=== PATIENT | male | born 1990 | race Native Hawaiian/Other Pacific Islander ===

== ENCOUNTER 2019-01-06 09:48 | Inpatient (IN) | payer MEDICARE, OTHER ==
[2019-01-06 10:04] VITALS: O2SAT 98
--- NOTE | 2019-01-06 10:15 | ED PDOC ---
Arrival/HPI - General Chief Complaint: Psychiatric Evaluation Time Seen by Provider: 01/06/19 09:56 Historian: Patient - History of Present Illness Narrative History of Present Illness (Text): 01/06/19 10:22 28-year-old male with a history of schizophrenia transferred from [facility] in [place]. Patient states he has been hearing voices and has been feeling depressed with intermittent suicidal ideation. He denies chest pain or shortness of breath. He denies abdominal pain. Past Medical History - Provider Review Nursing Documentation Reviewed: Yes - Travel History Have you recently traveled outside [place] w/in the past 3 mons?: No - Psychiatric Hx Schizophrenia: Yes Hx Substance Use: No Family/Social History - Physician Review Nursing Documentation Reviewed: Yes Family/Social History: Unknown Family HX Smoking Status: Heavy Smoker > 10 Cigarettes Daily Hx Alcohol Use: No Hx Substance Use: No Allergies/Home Meds Allergies/Adverse Reactions: Allergies No Known Allergies Allergy (Verified 01/06/19 09:56) Home Medications: Home Meds Medication Instructions Recorded Confirmed Benztropine [Cogentin] 1 mg PO Q12 01/06/19 01/06/19 Risperidone [Risperdal] 4 mg PO BID 01/06/19 01/06/19 Review of Systems - Review of Systems Constitutional: absent: Fatigue, Fevers Respiratory: absent: SOB, Cough Cardiovascular: absent: Chest Pain, Palpitations Gastrointestinal: absent: Abdominal Pain, Nausea, Vomiting Genitourinary Male: absent: Dysuria, Frequency, Hematuria Musculoskeletal: absent: Arthralgias Skin: absent: Rash, Pruritis Neurological: absent: Headache, Dizziness Psychiatric: absent: Anxiety, Depression, Suicidal Ideation Physical Exam Vital Signs Reviewed: Yes Vital Signs Temp Pulse Resp BP Pulse Ox 01/06/19 09:48 97.8 F 68 16 96/52 L 98 Temperature: Afebrile Blood Pressure: Normal Pulse: Regular Respiratory Rate: Normal Appearance: Positive for: Well-Appearing, Non-Toxic, Comfortable Pain Distress: None Mental Status: Positive for: Alert and Oriented X 3 - Systems Exam Head: Present: Atraumatic Mouth: Present: Moist Mucous Membranes Respiratory/Chest: Present: Clear to Auscultation Cardiovascular: Present: Regular Rate and Rhythm Abdomen: No: Tenderness Upper Extremity: Present: Normal Inspection Lower Extremity: Present: Normal Inspection Neurological: Present: GCS=15, Speech Normal Skin: Present: Warm, Dry, Normal Color Psychiatric: Present: Alert, Oriented x 3 Medical Decision Making ED Course and Treatment: 01/06/19 10:23 28-year-old male with schizophrenia. Transfer from [facility]. Patient was medically cleared for psychiatric admission. Impression: Schizophrenia, depression Admit to behavioral health floor Disposition/Present on Arrival - Present on Arrival Any Indicators Present on Arrival: No History of DVT/PE: No History of Uncontrolled Diabetes: No Urinary Catheter: No History of Decub. Ulcer: No History Surgical Site Infection Following: None - Disposition Have Diagnosis and Disposition been Completed?: Yes Diagnosis: Schizophrenia, Depression Disposition: HOSPITALIZED Disposition Time: 10:10 Patient Plan: Admission Patient Problems: Current Active Problems Problem Status Onset Schizophrenia Acute Condition: FAIR Referrals: PCP,NO [Primary Care Provider] - Follow up with primary
[2019-01-06] MEDS ORDERED: OLANZapine 5 mg Disintegrating Tab PO STA (11:30)
[2019-01-06] MEDS ORDERED: Haloperidol Lactate 2 mg/ml Liquid PO PRN ×2 (11:39→11:58)
--- NOTE | 2019-01-06 11:46 | PCM.BM ---
<Gorge Amado - Last Filed: 01/06/19 11:42> Treatment Plan Problems - Problems identified on initial assessmt Altered thought process Date Initiated: 01/06/19 Time Initiated: 11:30 Assessment reference: NA Status: Active Priority: 1 Comment: Auditory hallucination,male voice,to kill hurt self. Ineffective coping Date Initiated: 01/06/19 Time Initiated: 11:30 Assessment reference: NA Status: Active Priority: 2 Comment: Inability to cope with symptoms of mental illness Treatment assets and liabiliti Patient Assests: cooperative, educated, insightful, motivated, ADL independent, physically healthy Patient Liabilities: live alone, poor support system - Milieu Protocol Maintain good personal hygiene: every other day Encourage regular showers, every other day Remind patient to perform daily oral care, every other day Assist patient to perform ADL's Conduct patient checks and document Observation sheet: Q15 minutes Maintain personal safety: every shift Educate patient to report safety concerns to staff, every shift Monitor environment for contraband/sharps Medication safety: Monitor for expected outcome, potential side effects: every shift, Assess barriers to learning: every shift, Assess readiness for medication education: every shift Family Contact Family involvement: Famliy/SO not involved Family contact: Patient declines to allow family contact at present Discharge/Continuing Care - Education Needs Education Needs: Patient Medication, Patient Diagnosis/Disease Process, Patient Coping Skills, Patient Placement options, Patient Community resources, Patient Activities of Daily Living, Patient Nutrition, Patient Health Practices/Safety, Patient Personal Hygiene/Grooming, Patient Aftercare Safety Plan - Discharge Discharge Criteria: Tolerates medication w/o severe side effects, Free of Suicidal thoughts, Normal sleep pattern, Reduction of target symptoms <Farhana Wright - Last Filed: 01/06/19 13:49> - Diagnosis (1) Schizophrenia Status: Acute Interventions: 01/06/19 13:50 Monitoring withdrawal symptoms Medical detoxification Pharmacotherapy for alcohol/benzos/opioid dependence Maintaining sobriety Relapse prevention Possible rehabilitation Motivational interviewing 12-step programs: AA meetings <Margie Delgado - Last Filed: 01/10/19 12:15>
[2019-01-06] MEDS ORDERED: DiphenhydrAMINE 50 mg/ml Inj IM PRN (11:47)
--- NOTE | 2019-01-06 13:49 | PCM.PSYCH ---
Initial Psychiatric Evaluation - Initial Psychiatric Evaluation Type of Admission: Voluntary Legal Status: Capacity Chief Complaint (in patient's own words): "I hear voices, I do not know what they are saying, I am here because of bad thoughts" Patient's Reaction to Hospitalization: Patient was transferred from [facility] for evaluation stabilization of psychotic symptoms, inability to function, possible suicidal ideations. History of Present Illness and Precipitating Events: Shortly patient is 28-year-old [place] male, with reported history of schizophrenia, multiple previous psychiatric admissions, as per report patient left [facility] about a week ago, patient is homeless, has no support, patient came to the [facility], looking for help for psychotic symptoms and possible suicidal ideation, pt signed voluntarily to this psychiatric unit, transfer from [facility] was uneventful. Patient was seen and examined today the treatment team meeting, transferred paper reviewed, discussed with treatment team, patient presented with acceptable personal hygiene, appears to be guarded, paranoid, internally preoccupied, fair ADLs. Patient seems to be anxious and restless. Patient's thought process is concrete, "yes/no" answers only, patient seems to be poor and unreliable historian, patient has thought blocking, all these symptoms seems to be chronic and disturbing. Patient denied command type hallucinations, but appears to be responding. Patient reported being adopted, patient does not know where she is adoptive parents are, patient reported that she was born in [place], she does not know she is biological parents, patient reported being homeless. Patient reported that she is on Risperdal 3 mg twice a day, and Cogentin 1 mg twice a day, reported being compliant with her medications, denied any side effects. From this specifications writer perspective if patient was compliant with her medications and still admitted to the psychiatric inpatient unit, it means meds poorly working. Patient agreed to take Zyprexa+cogentin and ativan. As per report patient came to the hospital looking for help for his auditory hallucinations and suicidal thoughts, as per report patient was recently discharged from [facility] about 3 weeks ago where he was admitted for suicidal ideations and auditory hallucinations. In the emergency room patient reported that initially he was feeling good but voices came back few days ago. In the emergency room patient presented to be internally preoccupied, thought blocking, guarded. Patient was diagnosed with schizophrenia at the age of 24. As per report patient had a grandmother whom she lives with periodically. Patient reported being depressed "a little." Patient reported that he smokes about 1 pack a day, nicotine patch was offered, but patient declined that offer denied using any other drugs. Medications were confirmed by [facility] [place] [id number] Risperdal 3 mg twice a day Cogentin 1 mg twice a day As per history patient denied impulsive or violent or aggressive thoughts or feelings. Past psychiatric history: Multiple admissions to the psychiatric inpatient unit, ago. Family history: Unknown, patient was adopted. Medical history: Patient denies any medical history. Patient is allergic to Zithromax Urine drug screen was negative for any substances Chest x-ray impression: No evidence of acute pulmonary disease EKG: Normal EKG Vital Signs Temp Pulse Resp BP Pulse Ox 01/06/19 11:19 20 01/06/19 09:48 97.8 F 68 16 96/52 L 98 The patient failed the outpatient lower level of care: Yes Current Medications: Active Medications Generic Name Dose Route Start Last Admin Trade Name Freq PRN Reason Stop Dose Admin Benztropine Mesylate 1 mg 01/06/19 22:00 Cogentin PO AMHS PEPPER Diphenhydramine HCl 50 mg 01/06/19 11:47 Benadryl IM Q6H PRN Agitation Diphenhydramine HCl 50 mg 01/06/19 11:47 Benadryl PO Q6H PRN Agitation Haloperidol 5 mg 01/06/19 11:39 Haldol PO Q6H PRN Psychosis Protocol Haloperidol Lactate 5 mg 01/06/19 11:58 Haldol PO Q6H PRN psychosis/agitation Protocol Lorazepam 2 mg 01/06/19 11:41 Ativan PO Q6 PRN Agitation Protocol Lorazepam 2 mg 01/06/19 11:41 Ativan IM Q6H PRN Agitation Olanzapine 5 mg 01/06/19 22:00 Zyprexa Zydis PO HS PEPPER Protocol Olanzapine 5 mg 01/06/19 16:00 Zyprexa Zydis PO BID PEPPER Protocol Present on Admission - Present on Admission Any Indicators Present on Admission: No History of DVT/PE: No History of Uncontrolled Diabetes: No Urinary Catheter: No Decubitus Ulcer Present: No Review of Systems - Review of Systems Systems not reviewed;Unavailable: Acuity of Condition - Constitutional Constitutional: As Per HPI - EENT Eyes: As Per HPI Ears: As Per HPI Nose/Mouth/Throat: As Per HPI - Cardiovascular Cardiovascular: As Per HPI - Respiratory Respiratory: As Per HPI - Gastrointestinal Gastrointestinal: As Per HPI - Genitourinary Genitourinary: As Per HPI - Reproductive: Male Reproductive:Male: As Per HPI - Musculoskeletal Musculoskeletal: As Per HPI - Integumentary Integumentary: As Per HPI - Neurological Neurological: As Per HPI - Psychiatric Psychiatric: As Per HPI - Endocrine Endocrine: As Per HPI - Hematologic/Lymphatic Hematologic: As Per HPI Past Patient History - Past Psychiatric History Previous Treatment History: Inpatient Prior Professional Help: See HPI Prior Psychiatric Treatment: See HPI At what hospital: See HPI Duration: See HPI Nature of Treatment: See HPI Explanation of prior treatment: See HPI - PSYCHIATRIC Hx Psychophysiologic Disorder: Yes Hx Schizophrenia: Yes Hx Substance Use: No - CARDIAC Hx Cardiac Disorders: No - PULMONARY Hx Respiratory Disorders: No - NEUROLOGICAL Hx Neurological Disorder: No - HEENT Hx HEENT Problems: No - RENAL Hx Chronic Kidney Disease: No - ENDOCRINE/METABOLIC Hx Endocrine Disorders: No - HEMATOLOGICAL/ONCOLOGICAL Hx Blood Disorders: No - INTEGUMENTARY Hx Dermatological Problems: No - MUSCULOSKELETAL/RHEUMATOLOGICAL Hx Musculoskeletal Disorders: No - GASTROINTESTINAL Hx Gastrointestinal Disorders: No - GENITOURINARY/GYNECOLOGICAL Hx Genitourinary Disorders: No - SURGICAL HISTORY Hx Surgeries: No - ANESTHESIA Hx Anesthesia: No - Medical/Surgical History Reviewed & confirmed: by pa Meds Allergies/Adverse Reactions: Allergies Allergy/AdvReac Type Severity Reaction Status Date / Time No Known Allergies Allergy Verified 01/06/19 11:11 Mental Status Examination - Personal Presentation Personal Presentation: Looks stated age - Affect Affect: Constricted, Flat - Motor Activity Motor Activity: Calm - Reliability in Providing Information Reliability in Providing Information: Poor, due to alteration in thoughts, Poor, due to cognitve impairment - Speech Speech: Disorganized - Mood Mood: Depressed, Anxious - Formal Thought Process Formal Thought Process: Hallucinations, Delusions, Paranoia - Obsessions/Compulsions Obsessions: None Compulsions: None - Cognitive Functions Orientation: Person, Place, Situation, Time Sensorium: Alert Attention/Concentration: Easily distracted Abstract Thinking: [place] Estimate of Intelligence: Below average Judgement: Intact, as evidence by: Insight regarding need for hospitalization - Risk Risk: Suicidal, Self-mutilation, Diminished functioning - Strength & Assets Inventory Strength & Assets Inventory: Cooperative - Limitations Limitations: Other (Patient is homeless, poor support, chronic mental illness) Psychiatric Physical Exam - Physical Exam Reviewed and confirmed: Emergency Department Physical Exam Results - Vital Signs Recent Vital Signs: Last Vital Signs Temp 97.8 F 01/06/19 09:48 Pulse 68 01/06/19 09:48 Resp 20 01/06/19 11:19 BP 96/52 L 01/06/19 09:48 Pulse Ox 98 01/06/19 09:48 - EKG Data EKG Interpreted by: ER Physician EKG shows normal: Sinus rhythm DSM Plan - DSM 5 DSM 5 Diagnosis: Schizophrenia paranoid type - Recommended/Plan of Treatment Treatment Recommendations and Plan of Treatment: Milieu/structure/supportive therapy SW consultation for discharge plan and social issues Med management Risperdal will be discontinued because of ineffectiveness Zyprexa Zydis 5 mg twice a day and that the nighttime for psychosis Cogentin 1 mg twice a day Patient was medicated with Ativan and Zyprexa because patient presented to be actively responding and restless Remeron 15 mg at the nighttime for insomnia and depression Family involvement Follow up on labs Will monitor closely Pt was educated about risk/benefits and alternatives of medications, coping strategies (safety plan, suicide prevention), relapse prevention, importance of follow up with psychiatrist and therapist, stay away from drugs/alcohol/smoking Projected ELOS: 7 days Prognosis: Guarded Discharge Plan and Discharge Criteria: Patient will pose no imminent danger to self or others - Tobacco Cessation Tobacco Use Status for the last 30 days: Heavy User(>=5 cigs &/or cigars/pipes daily) Tobacco Use Treatment Practical Counseling Provided: Yes Tobacco Use Treatment FDA-Approved Cessation Medication Provided: No Reason for not providing: Patient refused tobacco cessation medication - Alcohol or Substance Abuse Does the patient have an Alcohol or Substance Abuse Disorder: No Initial Psych Certification - Initial Certification I certify that the inpatient psychiatric facility admission was medically necessary for either: Treatment which could reasonbly be expected to improve pt's condition I estimate of hospitalization is necessary for proper treatment of the patient: 7 Unit of Time: Days My plans for post-hospital care for this patient are: Intensive outpatient program Boarding home referral Integrative case management referral
[2019-01-06] MEDS: OLANZapine 5 mg Disintegrating Tab PO SCH ×2 (17:17→21:48)
[2019-01-06] MEDS ORDERED: OLANZapine 5 mg Disintegrating Tab PO SCH (22:00)
[2019-01-07] MEDS: OLANZapine 5 mg Disintegrating Tab PO SCH ×3 (08:46→21:36)
--- NOTE | 2019-01-07 09:19 | PCM.PYCHPN ---
Psychiatric Progress Note - Psychiatric Progress Note Patient seen today, length of contact: 25 min Problems Identified/Issues Discussed: I reviewed assessment and recent notes. I met with patient at bedside. He is conscious and opens his eyes when I call his name however he refuses to respond to my questioning. His affect is flat without any evidence of emotion/reaction to my introduction. Staff notes indicate that patient has been guarded, internally preoccupied and minimally verbal or interactive on the unit. Thought process is concrete and negative symptoms are predominant in his overall presentation as he has +thought blocking, decreased reactivity, speech and behaviors. He will not respond to questioning about his medications however he doesn't appear to be in physical or overt emotional distress. Insight and judgement remain poor. Diagnostic Results: Paranoid Schizophrenia Medication Change: Yes (added ativan 1 mg HS for catatonia) Medical Record Reviewed: Yes Mental Status Examination - Cognitive Function Orientation: Person, Place, Situation, Time - Mood Mood: Depressed, Anxious - Affect Affect: Constricted, Flat - Formal Thought Process Formal Thought Process: Hallucinations, Delusions, Paranoia Goal/Treatment Plan - Goal/Treatment Plan Progress Toward Problem(s) and Goals/Treatment Plan: * c/w current tx and plan * Added Ativan 1 mg po HS for catatonia and as further EPS prophylaxis as Asians are more susceptible to EPS s/e, patient is currently taking zyprexa zydis 5 mg po bid and HS * No new weekend lab results noted thus far * Recent vitals reviewed and noted below: 01/06/19 01/06/19 01/06/19 09:48 11:19 16:04 Temperature 97.8 F Pulse Rate 68 71 Respiratory 16 20 Rate Blood Pressure 96/52 L 103/63 O2 Sat by Pulse 98 Oximetry
--- NOTE | 2019-01-08 08:56 | PCM.PYCHPN ---
Psychiatric Progress Note - Psychiatric Progress Note Patient seen today, length of contact: 25 min Problems Identified/Issues Discussed: I reviewed recent notes and met with patient at bedside again. He is conscious and a little more responsive but still refuses to verbally participate in an i nterview. Affect remains flat and guarded without any evidence of emotion/reaction to my repeated introduction and questioning. Staff notes indicate that patient has been guarded, internally preoccupied and minimally verbal or interactive on the unit. Thought process is concrete and negative symptoms are predominant in his overall presentation as he has +thought blocking, decreased reactivity, speech and behaviors. He will not respond to questioning about his medications however he doesn't appear to be in physical or overt emotional distress. Patient stays in his room most of the time, even when called for medications. He doesn't attend groups or interact with peers. Minimally engaged with any unit related activities. Insight and judgement remain poor. Diagnostic Results: Paranoid Schizophrenia Medication Change: Yes (added ativan 1 mg HS for catatonia) Medical Record Reviewed: Yes Mental Status Examination - Cognitive Function Orientation: Person, Place, Situation, Time Attention: Poor Concentration: Poor Association: Loose Fund of Knowledge: Poor - Mood Mood: Depressed, Anxious - Affect Affect: Constricted, Flat - Formal Thought Process Formal Thought Process: Hallucinations, Delusions, Paranoia - Suicidal Ideation Suicidal Ideation: No - Homicidal Ideation Homicidal Ideation: No Goal/Treatment Plan - Goal/Treatment Plan Progress Toward Problem(s) and Goals/Treatment Plan: * c/w current tx and plan * Added Ativan 1 mg po HS on 01/07/19 for catatonia and as further EPS prophylaxis as Asians are more susceptible to EPS s/e, patient is currently taking zyprexa zydis 5 mg po bid and HS * No new weekend lab results noted thus far * Recent vitals reviewed and noted below: Selected Entries 01/07/19 01/07/19 07:01 16:00 Temperature 97.8 F Pulse Rate 71 80 Respiratory 20 Rate Blood Pressure 110/72 108/73
[2019-01-08] MEDS: OLANZapine 5 mg Disintegrating Tab PO SCH ×3 (09:08→21:12)
--- NOTE | 2019-01-09 09:08 | PCM.PYCHPN ---
Psychiatric Progress Note - Psychiatric Progress Note Patient seen today, length of contact: 25 min Problems Identified/Issues Discussed: I reviewed recent notes and met with patient at bedside again. He is a little more verbally responsive today. Reports that he is feeling "a little down", oth erwise he is "fine". Denies hallucinations or paranoia about anything. He tells staff members the same thing though has been observed talking loudly to himself on the unit. Patient required prns twice on Wednesday because he was actively and loudly responding to internal stimuli. Patient's affect remains flat and guarded without any evidence of emotion/reaction to my repeated introduction and questioning. Staff notes indicate that patient has been guarded, internally preoccupied and minimally verbal or interactive on the unit. Thought process is concrete and patient continues to demonstrate +thought blocking, decreased reactivity, speech and behaviors during interactions with this provider or staff. Patient still will not respond to questioning about his medications however he doesn't appear to be in physical or overt emotional distress. He is agreeable to increase in remeron for depressive symptoms. Patient stays in his room most of the time, even when called for medications. He doesn't attend groups or interact with peers. Minimally engaged with any unit related activities. Insight and judgement remain poor. Diagnostic Results: Paranoid Schizophrenia Medication Change: Yes (increased remeron to 30 mg po HS) Medical Record Reviewed: Yes Mental Status Examination - Cognitive Function Orientation: Person, Place, Situation, Time Attention: Poor Concentration: Poor Association: Loose Fund of Knowledge: Poor - Mood Mood: Depressed, Anxious - Affect Affect: Constricted, Flat - Speech Speech: Soft - Formal Thought Process Formal Thought Process: Hallucinations (denied however observed to be loudly talking to himself ), Delusions, Paranoia - Suicidal Ideation Suicidal Ideation: No - Homicidal Ideation Homicidal Ideation: No Goal/Treatment Plan - Goal/Treatment Plan Progress Toward Problem(s) and Goals/Treatment Plan: * c/w current tx and plan * Added Ativan 1 mg po HS on 01/07/19 for catatonia and as further EPS prophylaxis as Asians are more susceptible to EPS s/e, patient is currently taking zyprexa zydis 5 mg po bid and HS * Increased remeron to 30 mg po HS on 01/09/19 for patient's complaints of depression. * No new holiday weekend lab results noted * Recent vitals reviewed and noted below: 01/07/19 01/07/19 01/08/19 07:01 16:00 16:00 Temperature 97.8 F Pulse Rate 71 80 93 H Respiratory 20 Rate Blood Pressure 110/72 108/73 121/78
[2019-01-09] MEDS: OLANZapine 5 mg Disintegrating Tab PO SCH ×3 (09:11→20:59)
[2019-01-10] MEDS: OLANZapine 5 mg Disintegrating Tab PO SCH ×3 (09:19→21:27)
--- NOTE | 2019-01-10 15:17 | PCM.PYCHPN ---
Psychiatric Progress Note - Psychiatric Progress Note Patient seen today, length of contact: 30 minutes Patient Chief Complaint: "I feel better..." Problems Identified/Issues Discussed: Previous history, medications risk/benefits/alternatives, discharge planning. Medical Problems: Denied medical issues Diagnostic Results: Vital Signs Temp Pulse Resp BP Pulse Ox 01/10/19 07:29 97.4 F L 68 20 112/63 01/09/19 16:07 114 H 122/72 01/09/19 07:00 97.8 F 84 18 124/86 01/08/19 16:00 93 H 121/78 01/07/19 16:00 80 108/73 01/07/19 07:01 97.8 F 71 20 110/72 01/06/19 16:04 71 103/63 01/06/19 11:19 20 01/06/19 09:48 97.8 F 68 16 96/52 L 98 DSM 5 Symptoms Update: Shortly patient is 28-year-old [place] male, with reported history of schizophrenia, multiple previous psychiatric admissions, as per report patient left [facility] about a week ago, patient is homeless, has no support, patient came to the [facility], looking for help for psychotic symptoms and possible suicidal ideation, pt signed voluntarily to this psychiatric unit, transfer from [facility] was uneventful. Patient was seen and examined today at the treatment team meeting, there is some positive changes with patient presentation, hygiene is improving, patient is a little more verbally responsive today. As per report from the staff patient still observed pacing in the unit, talking to himself loudly, no agitation, no aggression. Patient required prns twice on Wednesday because he was actively and loudly responding to internal stimuli. So far patient tolerates medications well, no side effects observed or reported, aims 0, no EPS. Patient was interviewed by [facility] boarding home, awaiting for acceptance. Diagnostic Results: Paranoid Schizophrenia Medication Change: Yes (Zyprexa increased) Medical Record Reviewed: Yes Consults ordered or reviewed: Patient is in good physical health, was cleared by emergency room physician. Mental Status Examination - Cognitive Function Orientation: Person, Place, Situation, Time Memory: Impaired Attention: Poor Concentration: Poor Association: Loose Fund of Knowledge: Poor - Mood Mood: Depressed, Anxious - Affect Affect: Constricted, Flat - Speech Speech: Soft - Formal Thought Process Formal Thought Process: Hallucinations (denied however observed to be loudly talking to himself ), Delusions, Paranoia - Suicidal Ideation Suicidal Ideation: No - Homicidal Ideation Homicidal Ideation: No Goal/Treatment Plan - Goal/Treatment Plan Need for Continued Stay: Remain at risks for inpatient hospitalization, Severe depression anxiety, Discharge may exacerbated symptoms, Severe functional impairment Progress Toward Problem(s) and Goals/Treatment Plan: Milieu/structure/supportive therapy SW consultation for discharge plan and social issues Med management Risperdal will be discontinued because of ineffectiveness Zyprexa Zydis 5 mg twice a day and 10mg nighttime for psychosis Cogentin 1 mg twice a day Patient was medicated with Ativan and Zyprexa because patient presented to be actively responding and restless Remeron 30 mg at the nighttime for insomnia and depression Family involvement Follow up on labs Will monitor closely Pt was educated about risk/benefits and alternatives of medications, coping strategies (safety plan, suicide prevention), relapse prevention, importance of follow up with psychiatrist and therapist, stay away from drugs/alcohol/smoking Estimated Date of D/C: 01/20/19
[2019-01-11] MEDS: OLANZapine 5 mg Disintegrating Tab PO SCH ×3 (09:08→21:43)
--- NOTE | 2019-01-11 16:13 | PCM.PYCHPN ---
Psychiatric Progress Note - Psychiatric Progress Note Patient seen today, length of contact: 30 minutes Patient Chief Complaint: "I want to go to boarding home, I want to go to long-term" Problems Identified/Issues Discussed: Previous history, medications risk/benefits/alternatives, discharge planning. Medical Problems: Denied medical issues Diagnostic Results: Vital Signs Temp Pulse Resp BP Pulse Ox 01/10/19 07:29 97.4 F L 68 20 112/63 01/09/19 16:07 114 H 122/72 01/09/19 07:00 97.8 F 84 18 124/86 01/08/19 16:00 93 H 121/78 01/07/19 16:00 80 108/73 01/07/19 07:01 97.8 F 71 20 110/72 01/06/19 16:04 71 103/63 01/06/19 11:19 20 01/06/19 09:48 97.8 F 68 16 96/52 L 98 DSM 5 Symptoms Update: Shortly patient is 28-year-old Armenian male, with reported history of schizophrenia, multiple previous psychiatric admissions, as per report patient left [facility] about a week ago, patient is homeless, has no support, patient came to the [facility], looking for help for psychotic symptoms and possible suicidal ideation, pt signed voluntarily to this psychiatric unit, transfer from [facility] was uneventful. Patient was seen and examined today next to the nursing station, there is some positive changes with patient presentation, hygiene is improving, patient is a little more verbally responsive today. Patient appears to be occupied, severe thought blocking, poverty of speech, poverty of thought. As per report from the staff patient still observed pacing in the unit, talking to himself loudly, no agitation, no aggression. Patient required prns twice on Wednesday because he was actively and loudly responding to internal stimuli. So far patient tolerates medications well, no side effects observed or reported, aims 0, no EPS. [facility]. Diagnostic Results: Paranoid Schizophrenia Medication Change: Yes (Zyprexa increased yesterday) Medical Record Reviewed: Yes Mental Status Examination - Cognitive Function Orientation: Person, Place, Situation, Time Memory: Impaired Attention: Poor Concentration: Poor Association: Loose Fund of Knowledge: Poor - Mood Mood: Depressed, Anxious - Affect Affect: Constricted, Flat - Speech Speech: Soft - Formal Thought Process Formal Thought Process: Hallucinations (denied however observed to be loudly talking to himself ), Delusions, Paranoia - Suicidal Ideation Suicidal Ideation: No - Homicidal Ideation Homicidal Ideation: No Goal/Treatment Plan - Goal/Treatment Plan Need for Continued Stay: Remain at risks for inpatient hospitalization, Severe depression anxiety, Discharge may exacerbated symptoms, Severe functional impairment Progress Toward Problem(s) and Goals/Treatment Plan: Milieu/structure/supportive therapy SW consultation for discharge plan and social issues Med management Risperdal will be discontinued because of ineffectiveness Zyprexa Zydis 5 mg twice a day and 10mg nighttime for psychosis Cogentin 1 mg twice a day Patient was medicated with Ativan and Zyprexa because patient presented to be actively responding and restless Remeron 30 mg at the nighttime for insomnia and depression Family involvement Follow up on labs Will monitor closely Pt was educated about risk/benefits and alternatives of medications, coping strategies (safety plan, suicide prevention), relapse prevention, importance of follow up with psychiatrist and therapist, stay away from drugs/alcohol/smoking Estimated Date of D/C: 01/20/19
[2019-01-12] MEDS: OLANZapine 5 mg Disintegrating Tab PO SCH ×3 (10:04→21:48)
--- NOTE | 2019-01-12 13:58 | PCM.PYCHPN ---
Psychiatric Progress Note - Psychiatric Progress Note Patient seen today, length of contact: 30 minutes Patient Chief Complaint: "I want to go to boarding home, I want to go to prison" Problems Identified/Issues Discussed: Previous history, medications risk/benefits/alternatives, discharge planning. Medical Problems: Denied medical issues Diagnostic Results: Vital Signs Temp Pulse Resp BP Pulse Ox 01/10/19 07:29 97.4 F L 68 20 112/63 01/09/19 16:07 114 H 122/72 01/09/19 07:00 97.8 F 84 18 124/86 01/08/19 16:00 93 H 121/78 01/07/19 16:00 80 108/73 01/07/19 07:01 97.8 F 71 20 110/72 01/06/19 16:04 71 103/63 01/06/19 11:19 20 01/06/19 09:48 97.8 F 68 16 96/52 L 98 DSM 5 Symptoms Update: Shortly patient is 28-year-old Sami male, with reported history of schizophrenia, multiple previous psychiatric admissions, as per report patient left [facility] about a week ago, patient is homeless, has no support, patient came to the [facility], looking for help for psychotic symptoms and possible suicidal ideation, pt signed voluntarily to this psychiatric unit, transfer from [facility] was uneventful. Patient was seen and examined today next to the nursing station, there is some positive changes with patient presentation, hygiene is improving, patient is a little more verbally responsive today. Patient appears to be occupied, severe thought blocking, poverty of speech, poverty of thoughts. As per report from the staff patient still observed pacing in the unit, talking to himself loudly, no agitation, no aggression. So far patient tolerates medications well, no side effects observed or reported, aims 0, no EPS. Patient was interviewed by [facility] boarding home, awaiting for acceptance. Diagnostic Results: Paranoid Schizophrenia Medication Change: No Medical Record Reviewed: Yes Mental Status Examination - Cognitive Function Orientation: Person, Place, Situation, Time Memory: Impaired Attention: Poor Concentration: Poor Association: Loose Fund of Knowledge: Poor - Mood Mood: Depressed, Anxious - Affect Affect: Constricted, Flat - Speech Speech: Soft - Formal Thought Process Formal Thought Process: Hallucinations (denied however observed to be loudly talking to himself ), Delusions, Paranoia - Suicidal Ideation Suicidal Ideation: No - Homicidal Ideation Homicidal Ideation: No Goal/Treatment Plan - Goal/Treatment Plan Need for Continued Stay: Remain at risks for inpatient hospitalization, Severe depression anxiety, Discharge may exacerbated symptoms, Severe functional impairment Progress Toward Problem(s) and Goals/Treatment Plan: Milieu/structure/supportive therapy SW consultation for discharge plan and social issues Med management Risperdal will be discontinued because of ineffectiveness Zyprexa Zydis 5 mg twice a day and 10mg nighttime for psychosis Cogentin 1 mg twice a day Patient was medicated with Ativan and Zyprexa because patient presented to be actively responding and restless Remeron 30 mg at the nighttime for insomnia and depression Family involvement Follow up on labs Will monitor closely Pt was educated about risk/benefits and alternatives of medications, coping strategies (safety plan, suicide prevention), relapse prevention, importance of follow up with psychiatrist and therapist, stay away from drugs/alcohol/smoking All Estimated Date of D/C: 01/20/19
[2019-01-13] MEDS: OLANZapine 5 mg Disintegrating Tab PO SCH ×3 (08:53→21:13)
--- NOTE | 2019-01-13 15:01 | PCM.PYCHPN ---
Psychiatric Progress Note - Psychiatric Progress Note Patient seen today, length of contact: 30 minutes Patient Chief Complaint: "I want to go to boarding home, I want to go to alf" Problems Identified/Issues Discussed: Previous history, medications risk/benefits/alternatives, discharge planning. Medical Problems: Denied medical issues Diagnostic Results: Vital Signs Temp Pulse Resp BP Pulse Ox 01/10/19 07:29 97.4 F L 68 20 112/63 01/09/19 16:07 114 H 122/72 01/09/19 07:00 97.8 F 84 18 124/86 01/08/19 16:00 93 H 121/78 01/07/19 16:00 80 108/73 01/07/19 07:01 97.8 F 71 20 110/72 01/06/19 16:04 71 103/63 01/06/19 11:19 20 01/06/19 09:48 97.8 F 68 16 96/52 L 98 DSM 5 Symptoms Update: Shortly patient is 28-year-old Sami male, with reported history of schizophrenia, multiple previous psychiatric admissions, as per report patient left [facility] about a week ago, patient is homeless, has no support, patient came to the [facility], looking for help for psychotic symptoms and possible suicidal ideation, pt signed voluntarily to this psychiatric unit, transfer from [facility] was uneventful. Patient was seen and examined today in his room, there is some positive changes with patient presentation, hygiene is improving, patient is a little more verbally responsive today. Patient appears to be occupied, severe thought blocking, poverty of speech, poverty of thoughts. As per report from the staff patient still observed pacing in the unit, talking to himself loudly, no agitation, no aggression. So far patient tolerates medications well, no side effects observed or reported, aims 0, no EPS. Patient was interviewed by [facility] boarding home, but no patient does not want to go there. There is no safe discharge plan for the patient. Diagnostic Results: Paranoid Schizophrenia Medication Change: No Medical Record Reviewed: Yes Mental Status Examination - Cognitive Function Orientation: Person, Place, Situation, Time Memory: Impaired Attention: Poor Concentration: Poor Association: Loose Fund of Knowledge: Poor - Mood Mood: Depressed, Anxious - Affect Affect: Constricted, Flat - Speech Speech: Soft - Formal Thought Process Formal Thought Process: Hallucinations (denied however observed to be loudly talking to himself ), Delusions, Paranoia - Suicidal Ideation Suicidal Ideation: No - Homicidal Ideation Homicidal Ideation: No Goal/Treatment Plan - Goal/Treatment Plan Need for Continued Stay: Remain at risks for inpatient hospitalization, Severe depression anxiety, Discharge may exacerbated symptoms, Severe functional impairment Progress Toward Problem(s) and Goals/Treatment Plan: Milieu/structure/supportive therapy SW consultation for discharge plan and social issues Med management Zyprexa Zydis 5 mg twice a day and 10mg nighttime for psychosis Cogentin 1 mg twice a day Remeron 30 mg at the nighttime for insomnia and depression Family involvement Follow up on labs Will monitor closely Pt was educated about risk/benefits and alternatives of medications, coping strategies (safety plan, suicide prevention), relapse prevention, importance of follow up with psychiatrist and therapist, stay away from drugs/alcohol/smoking All Estimated Date of D/C: 01/20/19
[2019-01-14 06:49] VITALS: RESP 18
[2019-01-14] MEDS: OLANZapine 5 mg Disintegrating Tab PO SCH ×3 (08:41→21:26)
--- NOTE | 2019-01-14 09:05 | PCM.PYCHPN ---
Psychiatric Progress Note - Psychiatric Progress Note Patient seen today, length of contact: 30 minutes Problems Identified/Issues Discussed: I reviewed recent notes and met with patient at bedside. I am familiar with patient from our multiple, non-productive interviews last weekend. He is impr oving slowly. He is more visible {though reluctantly} and has been observed pacing on the unit. Grooming is better and focus is improving. Patient is also more verbally responsive during my visit today. Overall, however he is still preoccupied, paranoid and guarded with minimal authentic engagement. He denies hallucinations or paranoia about anything. He tells staff members the same thing though has been observed talking loudly to himself on the unit in the past. Patient has a tendency to minimize his symptoms. His affect remains flat without any evidence of emotion/reaction to my repeated questioning. Thought process is concrete and patient continues to demonstrate +thought blocking, decreased reactivity, speech and behaviors during interactions with this provider or staff. Patient still will not respond to questioning about his medications however he doesn't appear to be in physical or overt emotional distress. There were no behavioral issues overnight. Insight and judgement remain poor. Diagnostic Results: Paranoid Schizophrenia Medication Change: No Medical Record Reviewed: Yes Mental Status Examination - Cognitive Function Orientation: Person, Place, Situation, Time Memory: Impaired Attention: Poor Concentration: Poor Association: Loose Fund of Knowledge: Poor - Mood Mood: Depressed, Anxious - Affect Affect: Constricted, Flat - Speech Speech: Soft - Formal Thought Process Formal Thought Process: Hallucinations (denied however observed to be loudly talking to himself ), Delusions, Paranoia - Suicidal Ideation Suicidal Ideation: No - Homicidal Ideation Homicidal Ideation: No Goal/Treatment Plan - Goal/Treatment Plan Need for Continued Stay: Remain at risks for inpatient hospitalization, Severe depression anxiety, Discharge may exacerbated symptoms, Severe functional impairment Progress Toward Problem(s) and Goals/Treatment Plan: * c/w current tx and plan * No new weekend lab results noted * Recent vitals reviewed and noted below: Selected Entries 01/13/19 01/13/19 07:13 16:00 Temperature 97.6 F Pulse Rate 69 98 H Respiratory 20 Rate Blood Pressure 105/65 113/79 Estimated Date of D/C: 01/20/19
--- NOTE | 2019-01-15 09:13 | PCM.PYCHPN ---
Psychiatric Progress Note - Psychiatric Progress Note Patient seen today, length of contact: 30 minutes Problems Identified/Issues Discussed: I reviewed recent notes and met with patient at bedside. I am familiar with patient from our multiple, non-productive interviews last weekend. He is impr oving slowly. He is more visible {though reluctantly} and has been observed pacing on the unit. Grooming is better and focus is improving. Patient is also more verbally responsive during my visits. Overall, however he is still preoccupied, paranoid and guarded with minimal authentic engagement. He denies hallucinations or paranoia about anything. He tells staff members the same thing though still has been observed talking loudly to himself on the unit. Patient has a tendency to minimize his symptoms and avoid talking about them with anyone. His affect remains flat without any evidence of emotion/reaction to my questioning. Thought process is concrete and patient continues to demonstrate +thought blocking, decreased reactivity, speech and behaviors during interactions with this provider or staff. Patient denies any side effects from his medications. He doesn't appear to be in physical or overt emotional distress. There were no behavioral issues over the weekend. Patient still doesn't attend groups. Insight and judgement remain poor. Diagnostic Results: Paranoid Schizophrenia Medication Change: No Medical Record Reviewed: Yes Mental Status Examination - Cognitive Function Orientation: Person, Place, Situation, Time Memory: Impaired Attention: Poor Concentration: Poor Association: Loose Fund of Knowledge: Poor - Mood Mood: Depressed, Anxious - Affect Affect: Constricted, Flat - Speech Speech: Soft - Formal Thought Process Formal Thought Process: Hallucinations (denied however observed to talk to himself ), Delusions, Paranoia - Suicidal Ideation Suicidal Ideation: No - Homicidal Ideation Homicidal Ideation: No Goal/Treatment Plan - Goal/Treatment Plan Need for Continued Stay: Remain at risks for inpatient hospitalization, Severe depression anxiety, Discharge may exacerbated symptoms, Severe functional impairment Progress Toward Problem(s) and Goals/Treatment Plan: * c/w current tx and plan * No new weekend lab results noted * Recent vitals reviewed and noted below: Selected Entries 01/14/19 01/14/19 06:48 15:58 Temperature 98 F Pulse Rate 64 91 H Respiratory 18 Rate Blood Pressure 106/66 104/70 Estimated Date of D/C: 01/20/19
[2019-01-15] MEDS: OLANZapine 5 mg Disintegrating Tab PO SCH ×3 (10:37→21:20)
[2019-01-16 07:42] VITALS: BP 90/61; PULSE 77; TEMP 98
[2019-01-16] MEDS: OLANZapine 5 mg Disintegrating Tab PO SCH (09:37)
--- NOTE | 2019-01-16 12:19 | PCM.BM ---
<Kia Alvarenga - Last Filed: 01/16/19 12:18> Treatment Plan Problems - Problems identified on initial assessmt Altered thought process Date Initiated: 01/06/19 (01/16/19 HAS IMPROVED) Time Initiated: Date resolved: 01/16/19 Assessment reference: NA Status: Active Priority: 1 Comment: Auditory hallucination,male voice,to kill hurt self. Ineffective coping Date Initiated: 01/06/19 (PT IS FOR D/C TODAY) Time Initiated: Date resolved: 01/16/19 Assessment reference: NA Status: Active Priority: 2 Comment: Inability to cope with symptoms of mental illness Treatment assets and liabiliti Patient Assests: cooperative, educated, insightful, motivated, ADL independent, physically healthy Patient Liabilities: live alone, poor support system - Milieu Protocol Maintain good personal hygiene: every other day Encourage regular showers, every other day Remind patient to perform daily oral care, every other day Assist patient to perform ADL's Conduct patient checks and document Observation sheet: Q15 minutes Maintain personal safety: every shift Educate patient to report safety concerns to staff, every shift Monitor environment for contraband/sharps Medication safety: Monitor for expected outcome, potential side effects: every shift, Assess barriers to learning: every shift, Assess readiness for medication education: every shift Milieu Narrative: * c/w current tx and plan * No new weekend lab results noted * Recent vitals reviewed and noted below: Selected Entries 01/14/19 01/14/19 06:48 15:58 Temperature 98 F Pulse Rate 64 91 H Respiratory 18 Rate Blood Pressure 106/66 104/70 Family Contact Family involvement: Famliy/SO not involved Family contact: Patient declines to allow family contact at present Discharge/Continuing Care - Education Needs Education Needs: Patient Medication, Patient Diagnosis/Disease Process, Patient Coping Skills, Patient Placement options, Patient Community resources, Patient Activities of Daily Living, Patient Nutrition, Patient Health Practices/Safety, Patient Personal Hygiene/Grooming, Patient Aftercare Safety Plan - Discharge Discharge Criteria: Tolerates medication w/o severe side effects, Free of Suicidal thoughts, Normal sleep pattern, Reduction of target symptoms - Treatment Team Participation Patient/Family/SO Statement: * c/w current tx and plan * No new weekend lab results noted * Recent vitals reviewed and noted below: Selected Entries 01/14/19 01/14/19 06:48 15:58 Temperature 98 F Pulse Rate 64 91 H Respiratory 18 Rate Blood Pressure 106/66 104/70 Treatment Plan Review - Problem Altered thought process Time Initiated: 11:30 Ineffective coping Time Initiated: 11:30 <Farhana Wright - Last Filed: 01/16/19 16:39> - Diagnosis (1) Schizophrenia Status: Acute Interventions: 01/16/19 16:38 Patient reached maximum effect from this hospitalization Patient was compliant with the treatment Psychosis improving Patient has chronic disorganized thoughts but much improved Denied suicidal homicidal ideations Not aggressive not agitated
== END 2019-01-16 13:48 | disposition home or self-care (01) | DRG 885 ==
LOC: ED 09:48 → ERH 10:20 → PSYC 10:50
PROVIDERS: ADMIT Psychiatry & Neurology Psychiatry; ATTEND Psychiatry & Neurology Psychiatry
DX: F20.0 Paranoid schizophrenia (principal); R45.851 Suicidal ideations; F32.9 Major depressive disorder, single episode, unspecified; F17.210 Nicotine dependence, cigarettes, uncomplicated; G47.00 Insomnia, unspecified; Z88.1 Allergy status to other antibiotic agents; Z59.0 Homelessness